=== PATIENT | female | born 1960 | race Hispanic/Latino ===

== ENCOUNTER 2021-08-20 13:33 | Inpatient (IN) | payer MEDICARE ==
[2021-08-20] VITALS (8 sets, daily range): BP systolic 98–109; BP diastolic 43–78
[~2021-08-20] VITALS: Ht 160 cm; Wt 71.2 kg
[~2021-08-20 13:33] MED LIST: ACET1TAB12 PO; CITA-107 PO; GLYB5TAB8 PO; LABE200T5 PO; LISI1TAB51 PO
[2021-08-20] MEDS ORDERED: 0.9%NACL 1000ML 1,503 ML IV ONE (14:00)
[2021-08-20 14:08] LABS: APPEARANCE,URINE Cloudy (CLEAR); BILIRUBIN,URINE Negative (NEGATIVE); COLOR,URINE Dark Yellow (YELLOW); GLUCOSE, URINE (UA) >=1000 mg/dL (NEGATIVE); KETONES,URINE Trace mg/dL (NEGATIVE); LEUKOCYTE ESTERASE ,URINE Trace (NEGATIVE); NITRATE,URINE Positive (NEGATIVE); OCCULT BLOOD,URINE Large (NEGATIVE); PROTEIN,URINE POS 1+ mg/dL (NEGATIVE)
[2021-08-20 14:12] LABS: BASOPHILS % (AUTO) 0.5 % (0.0-5.0); EOSINOPHILS % (AUTO) 0.3 % (0.0-8.0); HEMATOCRIT 40.8 % (36-48); LYMPHOCYTES % (AUTO) 5.3 % (21.0-51.0); MEAN CORPUSCULAR HEMOGLOBIN 29.9 pg (27.0-33.0); MEAN CORPUSCULAR HGB CONC 34.3 g/dL (32.0-36.0); MONOCYTES % (AUTO) 3.5 % (3.0-13.0); NEUTROPHILS % (AUTO) 89.7 % (40.0-77.0); PLATELET COUNT (AUTO) 100 K/uL (130-400); RED BLOOD CELL COUNT(AUTO) 4.69 MIL/uL (4.00-5.50); RED CELL DISTRIBUTION WIDTH 12.3 % (11.0-15.5)
[2021-08-20 14:15] LABS: INR 1.29 (0.85-1.15); PROTHROMBIN TIME 13.7 SEC (9.6-11.6)
[2021-08-20 14:17] LABS: PARTIAL THROMBOPLASTIN TIME 34.1 SEC (26.3-35.5)
[2021-08-20 14:27] LABS: ALBUMIN 2.1 g/dL (3.5-5.0); BILIRUBIN,TOTAL 2.2 mg/dL (0.2-1.0); CREATININE 3.3 mg/dL (0.5-1.5); MAGNESIUM 1.8 mg/dL (1.80-2.40); POTASSIUM 3.8 mmol/L (3.5-5.1); TOTAL PROTEIN, SERUM 6.5 g/dL (6.0-8.3)
[2021-08-20] MEDS ORDERED: ZOSYN 3.375GM+NS 50ML 50 ML ONE (14:37)
[2021-08-20 14:44] LABS: BACTERIA,URINE Moderate /HPF (None Seen); RBC,URINE 0-1 /HPF (0-1)
[2021-08-20 14:45] LABS: SQUAMOUS EPITHELIAL CELL,UR Few /HPF (0-2)
[2021-08-20] MEDS: ZOSYN 3.375GM +NS 50ML IV SCH (15:00)
[2021-08-20] MEDS ORDERED: INSULIN HUMULIN R 100 UNIT/ML 3ML IV ONE (15:00)
[2021-08-20] MEDS ORDERED: NOREPINEPHRINE BITARTRATE 1 MG/1 ML ML IV ONE ×4 (15:00→18:43)
[2021-08-20] MEDS ORDERED: 0.9% NACL 250ML 250 ML ONE (15:00)
[2021-08-20] MEDS ORDERED: 0.9%NACL 1000ML 1,000 ML IV ONE (15:00)
[2021-08-20 15:12] LABS: ABG BASE EXCESS -23.3 mmol/L (-2.0-3.0); ABG HCO3 4.8 mmol/L (21.0-28.0); ABG OXYGEN SATURATION 57.8 % (95.0-99.0); ABG PCO2 17 mmHg (32-45)
[2021-08-20] MEDS: NOREPINEPHRIN 4MG/NS 250ML 250 ML IV SCH ×4 (15:16→23:04)
[2021-08-20 15:29] LABS: ABG BASE EXCESS -18.7 mmol/L (-2.0-3.0); ABG HCO3 7.9 mmol/L (21.0-28.0); ABG PCO2 22 mmHg (32-45)
[2021-08-20] MEDS ORDERED: SODIUM BICARB 8.4% 50ML SYRINGE IVP ONE (15:59)
[2021-08-20] MEDS ORDERED: LINEZOLID 600 MG/ISO-OSM 300 ML IV SCH (16:00)
[2021-08-20] MEDS ORDERED: 0.9%NACL 1000ML 1,000 ML IV SCH (16:00)
[2021-08-20] MEDS: MIDAZOLAM 100MG-0.9% NS 100ML 100 ML IV SCH (16:20)
[2021-08-20] MEDS ORDERED: PHARMACY COMMUNICATION MISC SCH ×2 (16:30)
[2021-08-20 17:18] LABS: BASOPHILS % (AUTO) 0.4 % (0.0-5.0); EOSINOPHILS % (AUTO) 0.3 % (0.0-8.0); MEAN CORPUSCULAR HEMOGLOBIN 29.9 pg (27.0-33.0); MEAN CORPUSCULAR HGB CONC 33.3 g/dL (32.0-36.0); MEAN CORPUSCULAR VOLUME 89.6 fL (79-99); MONOCYTES % (AUTO) 3.7 % (3.0-13.0); NEUTROPHILS % (AUTO) 83.1 % (40.0-77.0); NUCLEATED RED BLOOD CELLS 0.2 % (0.0-0.19); PLATELET COUNT (AUTO) 84 K/uL (130-400); RED BLOOD CELL COUNT(AUTO) 3.35 MIL/uL (4.00-5.50); RED CELL DISTRIBUTION WIDTH 12.4 % (11.0-15.5); WHITE BLOOD COUNT (AUTO) 13.5 K/uL (4.8-10.8)
[2021-08-20] MEDS: EPINEPHRINE PF 1MG AMP 10 MG in 0.9% NACL 250ML 250 ML IV SCH (17:30)
[2021-08-20 17:37] LABS: ALBUMIN 1.2 g/dL (3.5-5.0); BILIRUBIN,TOTAL 1.4 mg/dL (0.2-1.0); CREATININE 2.5 mg/dL (0.5-1.5); TOTAL PROTEIN, SERUM 4.1 g/dL (6.0-8.3)
[2021-08-20 17:50] LABS: POTASSIUM 2.6 mmol/L (3.5-5.1)
[2021-08-20 17:53] LABS: ABG BASE EXCESS -10.5 mmol/L (-2.0-3.0); ABG HCO3 16.9 mmol/L (21.0-28.0); ABG OXYGEN SATURATION 98.8 % (95.0-99.0); ABG PCO2 43 mmHg (32-45)
[2021-08-20] MEDS: INSULIN HUMULIN R 100 UNIT/ML 3ML SQ SCH (18:55)
[2021-08-20] MEDS: SODIUM BICARB IV SCH (18:59)
[2021-08-20] MEDS: WATER IV SCH (18:59)
[2021-08-20] MEDS: HYDROCORTISONE SOD SUCCINATE 100 MG/2 ML VIAL IV SCH (21:57)
[2021-08-20 23:20] LABS: ABG BASE EXCESS -12.8 mmol/L (-2.0-3.0); ABG HCO3 13.4 mmol/L (21.0-28.0); ABG OXYGEN SATURATION 99.5 % (95.0-99.0); ABG PCO2 32 mmHg (32-45)
[2021-08-20] MEDS ORDERED: SODIUM BICARB 50MEQ 50ML VIAL IV STA (23:45)
[2021-08-21] VITALS (44 sets, daily range): BP systolic 73–153; BP diastolic 34–94
[2021-08-21] MEDS: INSULIN HUMULIN R 100 UNIT/ML 3ML SQ SCH ×3 (00:32→11:28)
[2021-08-21] MEDS: EPINEPHRINE PF 1MG AMP 10 MG in 0.9% NACL 250ML 250 ML IV SCH ×3 (00:35→13:21)
[2021-08-21] MEDS: MIDAZOLAM 100MG-0.9% NS 100ML 100 ML IV SCH ×2 (00:36→10:08)
[2021-08-21] MEDS: ZOSYN 3.375GM +NS 50ML IV SCH (02:02)
[2021-08-21] MEDS ORDERED: ACETAMINOPHEN 650 MG SUPPOSITORY RC ONE (02:04)
[2021-08-21] MEDS: MEROPENEM 500 MG VIAL IVP SCH ×2 (02:28→09:23)
[2021-08-21] MEDS: WATER IV SCH ×2 (02:29→09:46)
[2021-08-21] MEDS: SODIUM BICARB IV SCH ×2 (02:29→09:46)
[2021-08-21] MEDS ORDERED: ACETAMINOPHEN 650 MG SUPPOSITORY RC PRN ×2 (02:30)
[2021-08-21] MEDS: NOREPINEPHRIN 4MG/NS 250ML 250 ML IV SCH ×4 (02:30→10:09)
[2021-08-21 04:11] LABS: ABG BASE EXCESS -11.2 mmol/L (-2.0-3.0); ABG HCO3 14.7 mmol/L (21.0-28.0); ABG OXYGEN SATURATION 98.5 % (95.0-99.0); ABG PCO2 33 mmHg (32-45)
[2021-08-21] MEDS ORDERED: SODIUM BICARB 50MEQ 50ML VIAL 100 ML ONE (04:49)
[2021-08-21] MEDS ORDERED: VASOPRESSIN 20 UNITS/ML 1ML VIAL ONE (04:49)
[2021-08-21] MEDS ORDERED: SODIUM BICARB 50MEQ 50ML VIAL IV ONE (05:00)
[2021-08-21] MEDS: HYDROCORTISONE SOD SUCCINATE 100 MG/2 ML VIAL IV SCH ×3 (05:04→12:08)
[2021-08-21] MEDS: VASOPRESSIN IV SCH ×2 (05:36→11:50)
[2021-08-21] MEDS: NACL 0.9% IV SCH ×2 (05:36→11:50)
[2021-08-21 09:08] LABS: ABG HCO3 16.1 mmol/L (21.0-28.0); ABG OXYGEN SATURATION 99.1 % (95.0-99.0); ABG PCO2 29 mmHg (32-45)
[2021-08-21 09:14] LABS: HEMATOCRIT 34.2 % (36-48); MEAN CORPUSCULAR HEMOGLOBIN 30.2 pg (27.0-33.0); MEAN CORPUSCULAR HGB CONC 35.4 g/dL (32.0-36.0); MEAN CORPUSCULAR VOLUME 85.3 fL (79-99); NUCLEATED RED BLOOD CELLS 0.2 % (0.0-0.19); PLATELET COUNT (AUTO) 68 K/uL (130-400); RED BLOOD CELL COUNT(AUTO) 4.01 MIL/uL (4.00-5.50); RED CELL DISTRIBUTION WIDTH 12.8 % (11.0-15.5); WHITE BLOOD COUNT (AUTO) 16.1 K/uL (4.8-10.8)
[2021-08-21 09:20] LABS: CREATININE 3.5 mg/dL (0.5-1.5); POTASSIUM 3.9 mmol/L (3.5-5.1)
[2021-08-21 09:30] LABS: BILIRUBIN,TOTAL 2.2 mg/dL (0.2-1.0); TOTAL PROTEIN, SERUM 4.1 g/dL (6.0-8.3)
[2021-08-21 10:12] LABS: BAND NEUTROPHILS % (MANUAL) 28 % (0-2); LYMPHOCYTES % (MANUAL) 12 % (22-44); MAN.DIFF COMMENT-IMPRESSION MANUAL DIFFERENTIAL; METAMYELOCYTES % 1 % (0-0); MONOCYTES % (MANUAL) 4 % (2-9); PLATELET MORPHOLOGY COMMENT DECREASED; REACTIVE LYMPHOCYTES 5 % (0-0); SEGMENTED NEUTROPHILS % 50 % (40-70)
[2021-08-21] MEDS ORDERED: MORPHINE 4 MG SYG ONE (13:47)
[2021-08-21] MEDS ORDERED: LORAZEPAM 2 MG/ML 1 ML VIAL ONE (13:48)
[2021-08-21] MEDS ORDERED: LORAZEPAM 2 MG/ML 1 ML VIAL IVP PRN (14:00)
[2021-08-21] MEDS ORDERED: MORPHINE 2 MG SYG IVP ONE (14:00)
== END 2021-08-21 16:00 | DRG 871 ==
LOC: EDH 13:33 → EDHIP 15:58 → 2CH 21:02
PROVIDERS: ADMIT Internal Medicine; ATTEND Internal Medicine
PROC: 5A1935Z Respiratory Ventilation, Less than 24 Consecutive Hours (ICD-10-PCS; principal; 2021-08-20)
PROC: 0BH17EZ Insertion of Endotracheal Airway into Trachea, Via Natural or Artificial Opening (ICD-10-PCS; 2021-08-20)
PROC: 5A12012 Performance of Cardiac Output, Single, Manual (ICD-10-PCS; 2021-08-20)
DX: A41.9 Sepsis, unspecified organism (principal); R65.21 Severe sepsis with septic shock; J96.01 Acute respiratory failure with hypoxia; J18.9 Pneumonia, unspecified organism; K72.00 Acute and subacute hepatic failure without coma; N17.9 Acute kidney failure, unspecified; E87.1 Hypo-osmolality and hyponatremia; J44.0 Chronic obstructive pulmonary disease with (acute) lower respiratory infection; N39.0 Urinary tract infection, site not specified; I24.8 Other forms of acute ischemic heart disease; E87.6 Hypokalemia; R57.0 Cardiogenic shock; I46.9 Cardiac arrest, cause unspecified; E88.09 Other disorders of plasma-protein metabolism, not elsewhere classified; K31.89 Other diseases of stomach and duodenum; K44.9 Diaphragmatic hernia without obstruction or gangrene; E11.65 Type 2 diabetes mellitus with hyperglycemia; E78.5 Hyperlipidemia, unspecified; E11.22 Type 2 diabetes mellitus with diabetic chronic kidney disease; I12.9 Hypertensive chronic kidney disease with stage 1 through stage 4 chronic kidney disease, or unspecified chronic kidney disease; E11.42 Type 2 diabetes mellitus with diabetic polyneuropathy; D69.6 Thrombocytopenia, unspecified; K57.90 Diverticulosis of intestine, part unspecified, without perforation or abscess without bleeding; N18.9 Chronic kidney disease, unspecified; Z66 Do not resuscitate; Z82.0 Family history of epilepsy and other diseases of the nervous system; Z82.5 Family history of asthma and other chronic lower respiratory diseases; Z82.3 Family history of stroke; Z82.49 Family history of ischemic heart disease and other diseases of the circulatory system; Z83.3 Family history of diabetes mellitus; Z90.49 Acquired absence of other specified parts of digestive tract; Z90.5 Acquired absence of kidney; Z92.21 Personal history of antineoplastic chemotherapy; Z85.528 Personal history of other malignant neoplasm of kidney; Z85.038 Personal history of other malignant neoplasm of large intestine; Z51.5 Encounter for palliative care
CPT/HCPCS: 31500; 36415; 36600; 71045; 71250; 74018; 74176; 80053; 81001; 82010; 82435; 82803; 82947; 82948; 83605; 83735; 84132; 84295; 84484; 85018; 85025; 85610; 85730; 87040; 87077; 87088; 87186; 92950; 93005; 94002; 94003; G0378; J0171; J1720; J1815; J2060; J2185; J2270; J2543; J3490; J7030; J7050